=== PATIENT | male | born 1990 | race Caucasian/White ===

== ENCOUNTER 2025-05-18 13:26 | Emergency (ER) | payer BC, SELFPAY ==
[2025-05-18 13:32] VITALS: BP 141/82
[2025-05-18 13:37] LABS: Glucose - Point of Care 86 mg/dl (70-99)
--- NOTE | 2025-05-18 14:06 | ED.GENMED ---
History of Present Illness
General
Chief Complaint: Flank Pain
Source: patient
Time Seen by Provider: 05/18/25 13:46
History of Present Illness
History of Present Illness:
This patient is a 35-year-old male who states he has been having symptoms for about 2 months, does not have a primary care doctor, and wanted to get 'checked out' in the emergency department. He describes intermittent right-sided flank pain that is
sometimes worse with movement on and off for the last 2 months. Then, over the weekend, he developed pain also in the left flank, also intermittent, also worse with movement. On both sides this does not radiate anywhere and is not associated with
abdominal pain, diaphoresis, nausea, vomiting, fever, chills, chest pain, dyspnea. He denies focal weakness, bowel or bladder incontinence or perineal anesthesia. For about a month however he notes that his urine has been 'cloudy and smelly'. He
denies dysuria, hematuria, penile discharge or rash, but does note urinary frequency. Lastly, patient is describing a 'weird tingling' in the lower chin that feels like 'static' that comes and goes described as 'sporadic', without exacerbating
relieving factors, not felt currently. He denies change in speech, change in vision, focal weakness, or other Associated complaints.
Past History
Past History
ED Past Medical History: None
ED Past Surgical History: Urological and Other (Nose repair)
Social History
Tobacco: Former smoker
Alcohol: None
Drug: None
Personal:
Living: with family
Employment: Employed
Phy Exam
Physical Exam
Physical Exam:
GENERAL: Alert , in no apparent distress
EYE: pupils equal and reactive
NECK: Supple, no significant adenopathy.
ENT: o/p clr, mmm.
CARDIAC: Regular rate and rhythm .
LUNGS: Clear breath sounds bilaterally, no acute respiratory distress, no wheezes/rales/rhonchi
ABDOMEN: Soft, without focal tenderness, no r/g, no cvat
NEUROLOGICAL: Alert and oriented, no focal neuro deficits
SKIN: Warm and dry, skin intact.
MUSCULOSKELETAL: No edema, well perfused.
PSYCH: Normal and appropriate interaction.
Course
Orders/Labs/Results
Orders:
Orders
05/18/25 14:05
US Renal With Bladder Urgent
Comment: bladder not full ok, looking at ureteral jets
Reason For Exam: flank pain
05/18/25 14:13
Complete Blood Count/No Diff Urgent
Comprehensive Metabolic Panel Urgent
Urinalysis Reflex To Culture Urgent
Date Specimen was Collected: 05/18/25
Time Specimen was Collected: 14:03
Urine Microscopic Reflex Cult Urgent
Abnormal Lab Results
05/18/25
14:13
MCH 32.1 H pg
(27.0-31.0)
MPV 10.6 H fL
(7.4-10.4)
BUN 22 H mg/dl
(9-20)
Urine Bacteria (Reflex) Few A
(Negative)
Urine Albumin (Reflex) 1+ A
(Neg - Trace)
05/18/25 14:13
05/18/25 14:13
Vital Signs
Initial and Last Documented VS:
Initial Vital Signs
Temp Pulse Resp BP Pulse Ox
98 F 70 16 141/82 98
05/18/25 13:32 05/18/25 13:32 05/18/25 13:32 05/18/25 13:32 05/18/25 13:32
Last Documented Vital Signs
Temp Pulse Resp BP Pulse Ox
97.6 F 70 16 131/78 96
05/18/25 14:18 05/18/25 15:02 05/18/25 15:02 05/18/25 15:02 05/18/25 15:02
*Pulse Oximetry
SaO2: 98
Oxygen Mode of Delivery: Room air
Patient hypoxic: no
*Critical Care Note
Total Time (30-74mins, 75-104mins- exclusive of procedures): Not Applicable
Update Note
Update Note:
Patient presents to the Emergency Department with ___bilateral flank pain, malodorous urine, tingling at chin
Number and Complexity of Problems Addressed at the Encounter
� Chronic conditions affecting care:
� Acute Exacerbation and/or Progression of Chronic Illness:
� Differential Diagnosis includes: But not limited to electrolyte disorder, kidney stone, UTI, pyelo-, etc. etc.
Amount and/or Complexity of Data to be Reviewed and Analyzed
� I performed an independent evaluation of and my interpretation is:
EKG:
CT:
Xrays:
Laboratory Studies: Generally unremarkable, mild prerenal azotemia
Other:No hydronephrosis. Punctate echogenic foci within the kidneys bilaterally which likely represent nonobstructing stones.
The urinary bladder is nondistended.
� Review of other/old records reveals:
� Clinical information was obtained by an independent historian:
� Prescriptions/Medications Considered but not given:
� Further testing considered but not performed:
Risk of Complications and/or Morbidity or Mortality of Patient Management
� Social determinants of health affecting care:
� Discussion with other providers (PCP, Hospitalists, Consultants, etc):
� Escalation of care including admission/observation vs risk of discharge considered: Workup generally unremarkable here with the exception of possibility of nonobstructing stones. Patient stable for discharge with close
follow-up.
ED Attending Note
-
Portions of this chart may have been created with voice recognition software.� Occasional wrong word or��sound alike� substitutions may have occurred due to the inherent limitations of voice recognition software.
Discharge Plan
Departure
Patient Disposition: Home (Routine Discharge)
Date of Disposition: 05/18/25
Time of Disposition: 16:12
Patient with high blood pressure during this ER visit?: Yes
Condition: Good
Discharge Problem:
Back pain
Instructions: Flank Pain (DC), BLOOD PRESSURE
Prescriptions:
No Action
No Current Medications
0
Referrals:
[facility] [Provider Group, Family Practice] - Next open appointment
NONE,* [Family Provider, Internal Medicine]
Activity Restrictions/Additional Instructions:
YOUR ULTRASOUND SUGGEST THAT YOU POSSIBLY MAY HAVE KIDNEY STONES. PLEASE SEE THE DOCTOR IN FOLLOW-UP. IF YOU DEVELOP BLOOD IN YOUR URINE, FEVER, INCREASING OR NEW PAIN, VOMITING, OR OTHER WORRISOME SIGNS, PLEASE RETURN TO THE ER IMMEDIATELY!
Interventions
Interventions:
*Risk Screen - Suicide Last Done: 05/18/25 13:34
*General Assessment Last Done: 05/18/25 14:18
*Neglect/Abuse Screening Last Done: 05/18/25 13:34
*ED- Fall Risk Assessment Last Done: 05/18/25 14:18
*ED COVID-19 Vaccine History Last Done: 05/18/25 14:18
KQ-Vpwmsq-Tntptbnhqr Assessment Last Done: 05/18/25 14:18
ED-Male Genitourinary Assessment Last Done: 05/18/25 14:18
Discharge Date and Time
Print Language: CHINESE
[2025-05-18 14:12] VITALS: BP 145/87
[2025-05-18 14:18] VITALS: BP 145/87; BMI 26.3
[2025-05-18 14:22] LABS: Urine Character Clear (Clear)
[2025-05-18 14:32] LABS: Hematocrit 45.5 % (39.0-52.0); Hemoglobin 15.7 g/dL (13.0-18.0); Mean Corp Hgb Conc. 34.5 g/dL (33.0-37.0); Mean Corpuscular Volume 93.0 fL (80.0-94.0); Platelet Count 268 10^3/uL (130-400); Red Cell Dist. Width 12.9 % (11.5-14.5)
[2025-05-18 14:40] LABS: Urine Squamous Cell 0-2 /LPF (Few)
[2025-05-18 14:41] LABS: Urine Red Blood Cell 0-2 /HPF (0-2); Urine White Cell 0-2 /HPF (0-5)
[2025-05-18 14:48] LABS: ALT (SGPT) 44 U/L (0-50); AST (SGOT) 33 U/L (17-59); Albumin 4.6 g/dl (3.5-5.0); Alkaline Phosphatase 63 U/L (38-126); Blood Urea Nitrogen 22 mg/dl (9-20); Calcium 8.9 mg/dl (8.4-10.2); Carbon Dioxide 30 mmol/L (22-30); Chloride 105 mmol/L (98-107); Estimated Creatinine Clearance 112 ml/min; Glucose 95 mg/dl (70-99); Potassium 4.3 mmol/L (3.5-5.1); Sodium 139 mmol/L (135-145); Total Protein 7.4 g/dl (6.3-8.2); eGFR > 60.00
[2025-05-18 15:00] VITALS: BP 131/78
[2025-05-18 15:02] VITALS: BP 131/78
== END 2025-05-18 17:00 | disposition home or self-care (01) ==
LOC: EMR 13:26
PROVIDERS: EMERGENCY PHYSICIAN Emergency Medicine
DX: M54.9 Dorsalgia, unspecified (principal); R03.0 Elevated blood-pressure reading, without diagnosis of hypertension; Z87.891 Personal history of nicotine dependence
CPT/HCPCS: 99284; 76770; 80053; 81003; 81015; 82962; 85027